=== PATIENT | male | born 1970 | race Caucasian/White ===

== ENCOUNTER → 2024-02-26 07:36 | Outpatient (REF) | payer BC, SELFPAY | LOC: EMG 07:36 | PROVIDERS: ATTENDING PHYSICIAN Internal Medicine | DX: R20.0 Anesthesia of skin (principal) | CPT/HCPCS: 95886; 95909 ==

== ENCOUNTER → 2025-01-06 10:41 | Outpatient (REF) | payer BC, SELFPAY | LOC: RAD 10:41 | PROVIDERS: ATTENDING PHYSICIAN Student in an Organized Health Care Education/Training Program | DX: R22.1 Localized swelling, mass and lump, neck (principal) | CPT/HCPCS: 71046; 76536 ==

== ENCOUNTER → 2025-01-27 15:59 | Outpatient (REF) | payer BC, SELFPAY | LOC: CLAB 15:59 | PROVIDERS: ATTENDING PHYSICIAN Otolaryngology | DX: K11.8 Other diseases of salivary glands (principal) | CPT/HCPCS: 88173 ==

== ENCOUNTER → 2025-02-09 07:12 | Outpatient (REF) | payer BC, SELFPAY ==
[2025-02-09 07:40] VITALS: BP 125/102; BP_SYST 71
[2025-02-09 09:03] VITALS: BP 129/100; BP_SYST 63
== END ==
LOC: RADI 07:12
PROVIDERS: ATTENDING PHYSICIAN Otolaryngology; FAMILY PHYSICIAN Student in an Organized Health Care Education/Training Program
DX: C82.91 Follicular lymphoma, unspecified, lymph nodes of head, face, and neck (principal)
CPT/HCPCS: 88173; 88305; 38505; 76942; 88341; 88342

== ENCOUNTER 2025-08-02 06:18 | Day surgery (SDC) | payer BC, SELFPAY | END 2025-08-02 11:51 | disposition home or self-care (01) | LOC: GI 06:18 | PROVIDERS: ATTENDING PHYSICIAN Specialist; FAMILY PHYSICIAN Student in an Organized Health Care Education/Training Program | DX: Z12.11 Encounter for screening for malignant neoplasm of colon (principal); K63.5 Polyp of colon; K51.00 Ulcerative (chronic) pancolitis without complications; K20.0 Eosinophilic esophagitis; K22.89 Other specified disease of esophagus | CPT/HCPCS: 45380; 43239; 88305 ==

== ENCOUNTER → 2025-08-18 14:10 | Outpatient (REF) | payer BC, SELFPAY | LOC: RAD 14:10 | PROVIDERS: ATTENDING PHYSICIAN Internal Medicine | DX: J45.41 Moderate persistent asthma with (acute) exacerbation (principal) | CPT/HCPCS: 71046 ==